=== PATIENT | female | born 1995 | race Caucasian/White ===

== ENCOUNTER 2020-10-10 12:49 | Inpatient (IN) | payer BC, OTHER ==
[~2020-10-10] VITALS: Ht 160 cm; Wt 69.4 kg
[2020-10-10] MEDS ORDERED: ONDANSETRON HCL 4 MG/2 ML VIAL IV ONE (13:00)
[2020-10-10] MEDS ORDERED: SODIUM CHLORIDE 0.9% 1,000 ML IVB ONE (13:00)
[2020-10-10] MEDS ORDERED: MORPHINE SULFATE 4 MG/ML SYR/VIAL IV ONE (13:00)
[2020-10-10 14:13] LABS: Basophils # (auto) 0 10 ^3/uL (0-0.2); Basophils % (auto) 0.3 % (0.0-2.0); Eosinophils # (auto) 0 10 ^3/uL (0-0.8); Eosinophils % (auto) 0.3 % (0.0-7.0); Hematocrit 43.4 % (36.0-46.0); Hemoglobin 14.6 g/dL (12.2-16.2); Lymphocytes # (auto) 2.4 10 ^3/uL (0.4-5.4); Lymphocytes % (auto) 31.4 % (10.0-50.0); Mean Corpuscular Hemoglobin 29.6 pg (28.0-32.0); Mean Corpuscular Hgb Conc. 33.7 g/dL (32.0-36.0); Mean Corpuscular Volume 87.8 fL (80.0-100.0); Monocytes # (auto) 0.5 10 ^3/uL (0-1.3); Monocytes % (auto) 6.2 % (0.0-12.0); Neutrophils # (auto) 4.6 10 ^3/uL (1.6-8.6); Neutrophils % (auto) 61.8 % (37.0-80.0); Nucleated Red Blood Cells % 0.1 %; Platelet Count (auto) 262 10^3/uL (140-450); Red Blood Cells 4.94 10^6/uL (4.0-5.20); Red Cell Distribution Width 12.9 % (11.8-14.3); White Blood Cell 7.5 10^3/uL (4.4-10.8)
[2020-10-10 14:26] LABS: Albumin 3.8 g/dL (3.4-5.0); Calcium 8.8 mg/dL (8.5-10.1); Potassium 3.4 mmol/L (3.5-5.1)
[2020-10-10 14:30] LABS: BUN/Creatinine Ratio 12.2; Total Protein 7.7 g/dL (6.4-8.2)
[2020-10-10] MEDS ORDERED: methylPREDNISolone SOD SUCC 125 MG/2 ML VL IV ONE (16:00)
[2020-10-10] MEDS ORDERED: MORPHINE SULF INJ 2 MG/ML SYRINGE 1ML IV PRN ×2 (16:15→18:00)
[2020-10-10] MEDS ORDERED: NITROGLYCERIN 0.4 MG SL TAB SL PRN ×2 (16:15→18:00)
[2020-10-10] MEDS ORDERED: AZITHROMYCIN 500MG/ 250ML 250 ML IV ONE (16:15)
[2020-10-10 16:42] LABS: Urine WBC None Seen /hpf (0 - 5)
[2020-10-10 16:53] LABS: Urine Bacteria NONE SEEN /hpf (None Seen); Urine Blood 1+ /uL (Negative); Urine Specific Gravity 1.006 (1.001-1.035)
[2020-10-10] MEDS ORDERED: POTASSIUM CHL 20MEQ/100ML 100 ML IV ONE (17:45)
--- NOTE | 2020-10-10 17:48 | NUR ---
Telemetry admit from ER THIBODEAUXJOHN Mccarthy admitted to Telemetry unit after SBAR received. Patient oriented to KAWN ALTAMIRANO RN primary RN, unit, room, bed, and unit policies regarding patient care and visiting hours. Patient now on continuous telemetry monitoring, tele box # 7 and telemetry reading on arrival to unit is SR. Patient placed on bedside oxygen, weighed by bedscale and encouraged to call if they need something. All questions and concerns addressed, patient verbalized understanding.
[2020-10-10] MEDS ORDERED: LORazepam 0.5 MG TAB PO PRN (18:00)
[2020-10-10] MEDS ORDERED: SODIUM CHLORIDE 0.9% 1,000 ML IV SCH (18:00)
[2020-10-10] MEDS ORDERED: ACETAMINOPHEN 325 MG TAB PO PRN (18:00)
[2020-10-10] MEDS ORDERED: DOCUSATE SOD 100 MG CAP PO PRN (18:00)
[2020-10-10] MEDS ORDERED: ACETAMINOPHEN 500 MG TAB PO PRN (18:00)
[2020-10-10] MEDS ORDERED: ALUM & MAG HYDROX-SIMETH LIQ(MAALOX) 30 ML PO PRN (18:00)
--- NOTE | 2020-10-10 19:10 | NUR ---
Opening Shift Note Assumed care of patient, awake, alert and oriented x4, on room air with even and unlabored respirations, no S/S of distress/SOB or pain. Patient able to ambulate independently, bed in lowest locked position, side rails up x2, and call light within reach. Instructed on POC and to call for assist PRN, will continue to monitor for changes Q1hr and PRN.
[2020-10-10 20:35] LABS: Alcohol, Urine < 3.0 mg/dL (0-10); Amphetamine Screen, Urine NEGATIVE (NEGATIVE); Barbiturate Scree,Urine NEGATIVE (NEGATIVE); Benzodiazephine Screen, Urine NEGATIVE (NEGATIVE); Cannabinoid Screen, Urine NEGATIVE (NEGATIVE); Cocaine Screen, Urine NEGATIVE (NEGATIVE); Opiate Scree,Urine NEGATIVE (NEGATIVE); Phencyclidine Screen, Urine NEGATIVE (NEGATIVE)
[2020-10-10] MEDS: ALBUTEROL SULF HFA 90MCG INH 200DOSE IN SCH (21:32)
[2020-10-10] MEDS: BUDESONIDE (INHALATION) 180 MCG IH IN SCH (21:32)
[2020-10-10 22:00] VITALS: BP 138/82
[2020-10-10] MEDS: SUCRALFATE 1 GM/10 ML ORAL SUSP PO SCH (22:16)
[2020-10-10] MEDS: DOXYCYCLINE 100MG/250ML 250 ML IV SCH (22:16)
[2020-10-10] MEDS: PANTOPRAZOLE 40 MG TAB PO SCH (22:18)
[2020-10-10] MEDS: ONDANSETRON HCL 4 MG/2 ML VIAL IV PRN (22:19)
[2020-10-10] MEDS: MORPHINE SULF INJ 2 MG/ML SYRINGE 1ML IV PRN (22:19)
[2020-10-10 23:48] LABS: Basophils # (auto) 0 10 ^3/uL (0-0.2); Basophils % (auto) 0.1 % (0.0-2.0); Eosinophils # (auto) 0 10 ^3/uL (0-0.8); Hematocrit 41.1 % (36.0-46.0); Hemoglobin 13.7 g/dL (12.2-16.2); Lymphocytes # (auto) 0.8 10 ^3/uL (0.4-5.4); Lymphocytes % (auto) 7.3 % (10.0-50.0); Mean Corpuscular Hemoglobin 29.3 pg (28.0-32.0); Mean Corpuscular Hgb Conc. 33.4 g/dL (32.0-36.0); Mean Corpuscular Volume 87.6 fL (80.0-100.0); Monocytes # (auto) 0 10 ^3/uL (0-1.3); Monocytes % (auto) 0.4 % (0.0-12.0); Neutrophils # (auto) 9.8 10 ^3/uL (1.6-8.6); Neutrophils % (auto) 92.2 % (37.0-80.0); Nucleated Red Blood Cells % 0.1 %; Platelet Count (auto) 249 10^3/uL (140-450); Red Blood Cells 4.69 10^6/uL (4.0-5.20); Red Cell Distribution Width 13.1 % (11.8-14.3); White Blood Cell 10.7 10^3/uL (4.4-10.8)
[2020-10-11 00:08] LABS: Albumin 3.5 g/dL (3.4-5.0); Calcium 8.7 mg/dL (8.5-10.1); Magnesium 2.4 mg/dL (1.6-2.6); Potassium 3.7 mmol/L (3.5-5.1)
[2020-10-11 00:12] LABS: Bilirubin, Total 0.6 mg/dL (0.2-1.0); CRP High Sensitivity 0.37 mg/dL (< 0.3); Total Protein 7.4 g/dL (6.4-8.2)
[2020-10-11 00:13] LABS: Cholesterol 209 mg/dL (< 200); HDL Cholesterol 46 mg/dL (40-59); LDL Cholesterol 164 mg/dL (< 100); Triglycerides 46 mg/dL (< 150)
[2020-10-11] MEDS: MORPHINE SULF INJ 2 MG/ML SYRINGE 1ML IV PRN ×2 (02:20→06:53)
[2020-10-11] MEDS: ONDANSETRON HCL 4 MG/2 ML VIAL IV PRN ×2 (02:20→06:54)
[2020-10-11 03:54] VITALS: BP 138/82
[2020-10-11 05:00] VITALS: BP 130/78
[2020-10-11 06:11] LABS: Basophils # (auto) 0 10 ^3/uL (0-0.2); Basophils % (auto) 0.2 % (0.0-2.0); Eosinophils # (auto) 0 10 ^3/uL (0-0.8); Hematocrit 43.2 % (36.0-46.0); Hemoglobin 14.5 g/dL (12.2-16.2); Lymphocytes # (auto) 1.1 10 ^3/uL (0.4-5.4); Lymphocytes % (auto) 10.2 % (10.0-50.0); Mean Corpuscular Hemoglobin 29.4 pg (28.0-32.0); Mean Corpuscular Hgb Conc. 33.6 g/dL (32.0-36.0); Mean Corpuscular Volume 87.6 fL (80.0-100.0); Monocytes # (auto) 0.1 10 ^3/uL (0-1.3); Monocytes % (auto) 1.1 % (0.0-12.0); Neutrophils # (auto) 9.7 10 ^3/uL (1.6-8.6); Neutrophils % (auto) 88.5 % (37.0-80.0); Platelet Count (auto) 274 10^3/uL (140-450); Red Blood Cells 4.93 10^6/uL (4.0-5.20)
[2020-10-11 06:31] LABS: Potassium 4.2 mmol/L (3.5-5.1)
[2020-10-11 06:37] LABS: Albumin 3.6 g/dL (3.4-5.0); BUN/Creatinine Ratio 13.3; Bilirubin, Total 0.8 mg/dL (0.2-1.0); Calcium 9.3 mg/dL (8.5-10.1); Total Protein 7.8 g/dL (6.4-8.2)
[2020-10-11] MEDS: ALBUTEROL SULF HFA 90MCG INH 200DOSE IN SCH ×2 (06:40→14:33)
[2020-10-11] MEDS: BUDESONIDE (INHALATION) 180 MCG IH IN SCH (06:40)
[2020-10-11] MEDS: SUCRALFATE 1 GM/10 ML ORAL SUSP PO SCH ×3 (06:52→16:47)
[2020-10-11 08:48] VITALS: BP 132/76
[2020-10-11] MEDS: PANTOPRAZOLE 40 MG TAB PO SCH (09:36)
[2020-10-11] MEDS: DOXYCYCLINE 100MG/250ML 250 ML IV SCH (09:37)
[2020-10-11] MEDS: HYDROcodone-ACET 5/325MG TAB PO PRN ×2 (09:38→16:46)
[2020-10-11] MEDS ORDERED: ENOXAPARIN SOD 40 MG/0.4 ML SYRINGE SC SCH (10:00)
[2020-10-11] MEDS ORDERED: POTASSIUM CHL 20 Meq TABLET PO SCH (10:00)
[2020-10-11] MEDS ORDERED: ASCORBIC ACID 1,000 MG TAB PO SCH (10:00)
[2020-10-11] MEDS ORDERED: ZINC SULFATE 220mg CAP or TAB PO SCH (10:00)
[2020-10-11] MEDS ORDERED: CHOLECALCIFEROL (VITD3) 2,000 UNIT CAP PO SCH (10:00)
[2020-10-11] MEDS ORDERED: DexAMETHasone SOD PHOS 10MG/1ML VIAL INJ IV SCH (10:00)
--- NOTE | 2020-10-11 10:46 | NUR ---
ROUNDING MD Stella DE PAZ AT BEDSIDE. ALL QUESTIONS AND CONCERNS ADDRESSED AT THIS TIME. NEW ORDERS RECEIVED
[2020-10-11] MEDS ORDERED: HYOSCYAMINE SULF 0.125 MG ODT TAB PO PRN (11:00)
[2020-10-11] MEDS ORDERED: LACTULOSE 20Gm/30ML SOLN PO PRN (11:00)
[2020-10-11] MEDS ORDERED: IOHEXOL 350 MG/ML 100ML IJ ONE (11:28)
--- NOTE | 2020-10-11 11:42 | NUR ---
ROUNDING MD Pam REBOLLAR AT BEDSIDE. ALL QUESTIONS AND CONCERNS ADDRESSED AT THIS TIME.
--- NOTE | 2020-10-11 11:52 | NUR ---
PATIENT OFF UNIT FOR PROCEDURE
[2020-10-11] MEDS ORDERED: SODIUM CHLORIDE 0.9% 1,000 ML IV ONE (12:00)
[2020-10-11 13:00] VITALS: BP 129/76
[2020-10-11] MEDS ORDERED: ASCO10003 PO (14:43)
[2020-10-11] MEDS ORDERED: DOXY-332 PO (14:43)
[2020-10-11] MEDS ORDERED: CHOL1CAP47 PO (14:43)
[2020-10-11] MEDS ORDERED: DEXA6TAB PO (14:43)
[2020-10-11] MEDS ORDERED: ALBUAER3 IN (14:43)
[2020-10-11] MEDS ORDERED: ZINC220T6 PO (14:43)
[2020-10-11] MEDS ORDERED: SUCR1SUS10 PO (14:43)
[2020-10-11] MEDS ORDERED: PANT40T PO (14:43)
[2020-10-11 15:03] VITALS: BP 122/84
[2020-10-11 15:26] LABS: Lactic Acid w/Reflex 3.1 mmol/L (0.4-2.0)
--- NOTE | 2020-10-11 16:05 | NUR ---
Pt is an alert and oriented female that is pesant and able to make needs known. Pt resides with her spouse and family. Pt has been functioning independently prior to admission and uses no medical equipment. Per [place] orders consult for for safety. Faxed clinical information to contracted vendor [facility] [phone]( now [facility]) and pt accepted onto service which will start 24 hours after admission. Addendum: 10/11/20 at 1609 by MILADY BLACKWELL Amended: Links added.
--- NOTE | 2020-10-11 16:13 | NUR ---
JOAQUIN REBOLLAR RE: CURRENT LACTIC ACID RESULTS 3.1 AND IF HE WOULD LIKE TO PROCEED WITH DISCHARGE. AWAITING CALL BACK
--- NOTE | 2020-10-11 16:14 | NUR ---
MD Jeremy REBOLLAR RETURNED PAGE PER PATIENT IS OKAY TO CONTINUE WITH DISCHARGE. STATES "EDUCATE PATIENT TO DRINK 2-3L OF FLUID/DAY"
[2020-10-11 17:00] VITALS: BP 124/77
--- NOTE | 2020-10-11 17:00 | NUR ---
Discharge instructions given as ordered. Encourage to follow up with PMD as instructed. All questions and concerns addressed. Patient verbalized understanding. Medication reconciliation form completed and copy given to patient. Home medications held in Pharmacy returned to patient, IV removed with catheter intact, pressure dressing applied. Telemetry unit returned to ICU. Patient taken to vehicle via wheelchair with all personal belongings, accompanied by staff and family member. No distress noted at time of departure.
== END 2020-10-11 17:00 | disposition home or self-care (01) | DRG 179 ==
LOC: ER 12:49 → TELE 16:16 → TELE-EAST 17:49
PROVIDERS: ADMIT Hospitalist; ATTEND Internal Medicine
DX: U07.1 COVID-19 (principal); K21.9 Gastro-esophageal reflux disease without esophagitis; K29.70 Gastritis, unspecified, without bleeding; K59.00 Constipation, unspecified; Z82.49 Family history of ischemic heart disease and other diseases of the circulatory system; Z83.3 Family history of diabetes mellitus
CPT/HCPCS: 36415; 71045; 71275; 74176; 80053; 80061; 80307; 81001; 82728; 83036; 83605; 83615; 83690; 83735; 84443; 84484; 84702; 85025; 85379; 86141; 87040; 87086; 93970; 94640; 96374; 96375; G0378; J1100; J2405; J3480; J3490